=== PATIENT | male | born 1960 | race Caucasian/White ===

== ENCOUNTER 2016-08-05 17:24 | Emergency (ER) | payer OTHER ==
--- NOTE | 2016-08-13 11:08 | ER ---
ADMIT: 08/05/2016 RM/LOC: ER [facility] MR#: [id number] [facility] [place], [place] [id number] CLAUDIA MCCARTHY [address] [place], [place] [id number] Emergency Room Report SEX: M AGE: 56 : 1960 DATE: 08/05/2016 CHIEF COMPLAINT: Neck injury. HISTORY OF PRESENT ILLNESS: A 56-year-old male, who presents to the ER complaining of increasing neck pain. States he was working on a flat bed trailer yesterday approximately 1430 hours when he was knocked off, fell on his gluteus and then to his back. Since then, he has had increasing cervical spine pain that kind of radiates down through the back and up in to his skull. Describes it as aching. Rates the pain as a 6/10. Denies any fever, chills, sweating, headache, numbness, or tingling. Worse with movement, relieved by nothing at this point. States he has been using Tylenol 40 "for pain at this point." PAST MEDICAL HISTORY: 1. Hypertension. 2. Hemorrhoids. 3. He is status post cholecystectomy, otherwise well today. COURSE IN THE EMERGENCY ROOM: GENERAL: The patient was seen and examined. Afebrile and nontoxic, in no acute distress. Inspection of the neck shows some decreased range of motion secondary to pain. No lymphadenopathy. He does have some vertebral tenderness throughout per his report. BACK: Otherwise nontender. Normal inspection. CHEST: Nontender. He has equal breath sounds bilaterally. No wheezes, rhonchi, or rales. HEART: Regular rhythm. Tachycardia. ABDOMEN: Somewhat distended and firm. However, he states he has no pain with palpation. SKIN: Warm and dry. EXTREMITIES: Nontender. No pedal edema. We did get a routine cervical spine, question C4-C5 irregularly. Followup CT was recommended. CT was completed, read by Dr. Solis, found to be without ADMIT: 08/05/2016 RM/LOC: [facility] MR#: [id number] [facility] [place], [place] [id number] CLAUDIA MCCARTHY [address] [place] [address] Emergency Room Report SEX: M AGE: 56 : 1960 acute disease, thought to be secondary to chronic changes in some ligaments about his cervical spine. While in the emergency department, he was given 15 mg of Toradol IM as well as 100 mg of Ultram p.o. IMPRESSION: Contusion, cervical spine. DISPOSITION: The patient was discharged with script for Ultram 50 mg one to two tabs p.o. every 6 hours as needed for pain #30. Follow up with primary if not improving. Certainly rest, ice. Tylenol or Motrin as needed for pain. Return for worsening signs. Activity as tolerated. Questions were sought and answered to the best of my ability and to the patient's satisfaction. Discharged in stable condition. FRANCISCA Marin / Kit Monae MD / sliml JOB #: [id number] CC: Kit Monae MD, Attending Physician UNKNOWN, Family Physician
== END 2016-08-05 19:59 | disposition home or self-care (01) ==
LOC: ER 17:24
DX: S10.93XA Contusion of unspecified part of neck, initial encounter (principal); I10 Essential (primary) hypertension; Z90.49 Acquired absence of other specified parts of digestive tract; W18.30XA Fall on same level, unspecified, initial encounter